=== PATIENT | female | born 1985 | race Two or more races ===

== ENCOUNTER 2021-12-15 21:20 | Emergency (ER) | payer OTHER ==
[~2021-12-15] VITALS: Ht 154.9 cm; Wt 64.9 kg
[2021-12-15] MEDS ORDERED: PEPCID AC20 MG PO (21:26)
[2021-12-15] MEDS ORDERED: PREVACID30 MG PO (21:26)
[2021-12-16] MEDS ORDERED: MEDROLPACK PO (03:12)
[2021-12-16] MEDS ORDERED: MUCINEX DM ER1 EACH PO (03:12)
[2021-12-16] MEDS ORDERED: SYMBICORT 80/10.2 GM IH (03:12)
[2021-12-16] MEDS ORDERED: AZITHROMYCIN500 MG PO (03:12)
[2021-12-16] MEDS ORDERED: XOPENEX HFA15 GM IH (03:12)
== END 2021-12-16 03:24 | disposition home or self-care (01) ==
LOC: ER 21:20
DX: J45.909 Unspecified asthma, uncomplicated (principal)